=== PATIENT | male | born 1975 | race Caucasian/White ===

== ENCOUNTER 2016-10-14 19:10 | Inpatient (IN) | payer BC ==
[~2016-10-14] VITALS: Ht 175.3 cm; Wt 95.3 kg
[2016-10-14 20:35] LABS: HEMOGLOBIN 8.4 gm/dl (14.0-17.5); WHITE BLOOD COUNT 16.5 K/UL (4.5-11.0)
[2016-10-14 20:44] LABS: BUN/CREATININE RATIO 7 (0-10)
[2016-10-14 21:03] LABS: RED BLOOD COUNT 4.44 M/UL (4.20-5.50)
[2016-10-15 08:06] LABS: HEMOGLOBIN 7.8 gm/dl (14.0-17.5); WHITE BLOOD COUNT 12.5 K/UL (4.5-11.0)
[2016-10-15 08:07] LABS: RED BLOOD COUNT 3.97 M/UL (4.20-5.50)
[2016-10-15 08:17] LABS: BUN/CREATININE RATIO 9 (0-10)
[2016-10-15 19:31] LABS: HEMOGLOBIN 9.1 gm/dl (14.0-17.5); RED BLOOD COUNT 4.42 M/UL (4.20-5.50); WHITE BLOOD COUNT 12.6 K/UL (4.5-11.0)
[2016-10-16 06:00] LABS: HEMOGLOBIN 8.8 gm/dl (14.0-17.5); RED BLOOD COUNT 4.34 M/UL (4.20-5.50); WHITE BLOOD COUNT 13.8 K/UL (4.5-11.0)
[2016-10-16 06:09] LABS: BUN/CREATININE RATIO 8 (0-10)
[2016-10-17 04:40] LABS: HEMOGLOBIN 8.7 gm/dl (14.0-17.5); RED BLOOD COUNT 4.24 M/UL (4.20-5.50); WHITE BLOOD COUNT 14.5 K/UL (4.5-11.0)
[2016-10-17 05:03] LABS: BUN/CREATININE RATIO 4 (0-10)
[2016-10-18 05:18] LABS: HEMOGLOBIN 9.1 gm/dl (14.0-17.5); RED BLOOD COUNT 4.39 M/UL (4.20-5.50)
[2016-10-18 05:19] LABS: WHITE BLOOD COUNT 10.6 K/UL (4.5-11.0)
[2016-10-18 05:33] LABS: BUN/CREATININE RATIO 9 (0-10)
[2016-10-19 04:43] LABS: HEMOGLOBIN 9.3 gm/dl (14.0-17.5); RED BLOOD COUNT 4.46 M/UL (4.20-5.50)
[2016-10-19 04:44] LABS: WHITE BLOOD COUNT 13.5 K/UL (4.5-11.0)
[2016-10-19 04:56] LABS: BUN/CREATININE RATIO 16 (0-10)
[2016-10-20] MEDS ORDERED: PREDNISONE10 MG PO (12:49)
[2016-10-20] MEDS ORDERED: FLECAINIDE ACET50 MG PO (12:50)
[2016-10-20] MEDS ORDERED: LEVAQUIN500 MG PO (12:51)
[2016-10-20] MEDS ORDERED: ASPIRIN EC81 MG PO (12:51)
[2016-10-20] MEDS ORDERED: METOPROLOL TART25 MG PO (12:52)
[2016-10-20] MEDS ORDERED: FLAGYL500 MG PO (12:52)
[2016-10-20] MEDS ORDERED: TYLENOL 325MG325 MG PO (13:03)
== END 2016-10-20 13:50 | disposition home or self-care (01) | DRG 386 ==
LOC: ER1 19:10 → ZEROF 22:59 → M/S 22:59 → PROG CARE 10-17 01:05 → M/S 10-18 20:00 → ZEROF 10-20 13:58
PROVIDERS: Family Medicine; Internal Medicine; Internal Medicine Gastroenterology; ADMIT Internal Medicine
PROC: 30233N1 Transfusion of Nonautologous Red Blood Cells into Peripheral Vein, Percutaneous Approach (ICD-10-PCS; principal; 2016-10-15)
DX: K51.90 Ulcerative colitis, unspecified, without complications (principal); D62 Acute posthemorrhagic anemia; I48.0 Paroxysmal atrial fibrillation; D50.9 Iron deficiency anemia, unspecified; E87.6 Hypokalemia; D47.3 Essential (hemorrhagic) thrombocythemia; J02.9 Acute pharyngitis, unspecified; F17.210 Nicotine dependence, cigarettes, uncomplicated; Z79.82 Long term (current) use of aspirin; E66.9 Obesity, unspecified; Z68.31 Body mass index [BMI] 31.0-31.9, adult; Z82.49 Family history of ischemic heart disease and other diseases of the circulatory system; Z80.3 Family history of malignant neoplasm of breast
CPT/HCPCS: ECHO; 36415; 36430; 71010; 78452; 80048; 80053; 81001; 82150; 82272; 82550; 82553; 82728; 83540; 83550; 83605; 83690; 83735; 84132; 84443; 84484; 85025; 85027; 86850; 86900; 86901; 86920; 87040; 87045; 87046; 87081; 87086; 87880; 93005; 93017; 93306; 96361; 96374; 96375; 99285; A9502; C9113; J1650; J1956; J2270; J2405; J2550; J2785; J2920; J3480; J7040; J7050; P9016; Q9962

== ENCOUNTER → 2020-02-20 | Outpatient (CLI) | payer OTHER ==
[~2020-02-20] VITALS: Ht 175.3 cm; Wt 99.8 kg
[~2020-02-20] MED LIST: ASPIRIN EC81 MG PO; FLAGYL500 MG PO; FLECAINIDE ACET50 MG PO; IMURAN50 MG PO; LEVAQUIN500 MG PO; METOPROLOL TART25 MG PO; PERCOCET 5/325 T1 EA PO; PREDNISONE10 MG PO; SIMPONI100 MG/1 M IM; TYLENOL 325MG325 MG PO
[2020-02-20 10:07] LABS: HEMOGLOBIN 15.7 gm/dl (14.0-17.5); RED BLOOD COUNT 4.66 M/UL (4.20-5.50); WHITE BLOOD COUNT 5.5 K/UL (4.5-11.0)
[2020-02-20 10:28] LABS: BUN/CREATININE RATIO 17 (0-10)
== END ==
LOC: OPSV 08:00
PROVIDERS: Dietitian, Registered
DX: K51.00 Ulcerative (chronic) pancolitis without complications (principal)
CPT/HCPCS: 80053; 85025; 86140; 96365; 96366; 96375; 96413; 96415; J1720; J1745; J7030

== ENCOUNTER → 2020-03-19 | Outpatient (CLI) | payer OTHER ==
[~2020-03-19] VITALS: Ht 175.3 cm; Wt 99.8 kg
[2020-03-19 09:46] LABS: HEMOGLOBIN 16.4 gm/dl (14.0-17.5); RED BLOOD COUNT 4.76 M/UL (4.20-5.50); WHITE BLOOD COUNT 7.6 K/UL (4.5-11.0)
[2020-03-19 09:59] LABS: BUN/CREATININE RATIO 15 (0-10)
== END ==
LOC: OPSV 09:00
PROVIDERS: Internal Medicine Gastroenterology
DX: K51.00 Ulcerative (chronic) pancolitis without complications (principal)
CPT/HCPCS: 36415; 80053; 85025; 86140; 96365; 96366; 96375; J1720; J7030; Q5103

== ENCOUNTER → 2020-04-30 | Outpatient (CLI) | payer OTHER ==
[~2020-04-30] VITALS: Ht 175.3 cm; Wt 99.8 kg
[2020-04-30 09:57] LABS: RED BLOOD COUNT 4.58 M/UL (4.20-5.50); WHITE BLOOD COUNT 6.5 K/UL (4.5-11.0)
[2020-04-30 10:04] LABS: BUN/CREATININE RATIO 15 (0-10)
== END ==
LOC: OPSV 09:00
PROVIDERS: Internal Medicine Gastroenterology
DX: K51.00 Ulcerative (chronic) pancolitis without complications (principal)
CPT/HCPCS: 80053; 85025; 86140; 96365; 96366; 96375; J1720; J7030; Q5103

== ENCOUNTER → 2020-05-28 | Outpatient (CLI) | payer OTHER ==
[~2020-05-28] VITALS: Ht 175.3 cm; Wt 99.8 kg
[2020-05-28 10:04] LABS: HEMOGLOBIN 16.2 gm/dl (14.0-17.5); RED BLOOD COUNT 4.62 M/UL (4.20-5.50); WHITE BLOOD COUNT 9.2 K/UL (4.5-11.0)
[2020-05-28 10:36] LABS: BUN/CREATININE RATIO 22 (0-10)
== END ==
LOC: OPSV 09:00
PROVIDERS: Internal Medicine Gastroenterology
DX: K51.00 Ulcerative (chronic) pancolitis without complications (principal); K60.3 Anal fistula; K64.5 Perianal venous thrombosis; D50.9 Iron deficiency anemia, unspecified; G47.00 Insomnia, unspecified; R11.0 Nausea; Z87.891 Personal history of nicotine dependence
CPT/HCPCS: 36415; 80053; 85025; 86140; 96365; 96366; 96375; J1720; J7030; Q5103

== ENCOUNTER → 2020-06-25 | Outpatient (CLI) | payer OTHER ==
[~2020-06-25] VITALS: Ht 175.3 cm; Wt 99.8 kg
[2020-06-25 09:30] LABS: HEMOGLOBIN 15.3 gm/dl (14.0-17.5); RED BLOOD COUNT 4.37 M/UL (4.20-5.50); WHITE BLOOD COUNT 7.6 K/UL (4.5-11.0)
[2020-06-25 09:59] LABS: BUN/CREATININE RATIO 15 (0-10)
== END ==
LOC: OPSV 08:47
PROVIDERS: Internal Medicine Gastroenterology
DX: K51.00 Ulcerative (chronic) pancolitis without complications (principal); K60.3 Anal fistula; D64.9 Anemia, unspecified; K64.5 Perianal venous thrombosis; K64.4 Residual hemorrhoidal skin tags; D50.9 Iron deficiency anemia, unspecified; G47.00 Insomnia, unspecified; K51.90 Ulcerative colitis, unspecified, without complications; Z87.19 Personal history of other diseases of the digestive system; Z87.891 Personal history of nicotine dependence; Z88.8 Allergy status to other drugs, medicaments and biological substances
CPT/HCPCS: 36415; 80053; 85025; 86140; 96365; 96366; J1720; J7030; Q5103

== ENCOUNTER → 2020-07-23 | Outpatient (CLI) | payer OTHER ==
[~2020-07-23] VITALS: Ht 175.3 cm; Wt 99.8 kg
[2020-07-23 09:52] LABS: HEMOGLOBIN 16.3 gm/dl (14.0-17.5); RED BLOOD COUNT 4.59 M/UL (4.20-5.50); WHITE BLOOD COUNT 8.5 K/UL (4.5-11.0)
[2020-07-23 10:54] LABS: BUN/CREATININE RATIO 27 (0-10)
== END ==
LOC: OPSV 09:00
PROVIDERS: Internal Medicine Gastroenterology
DX: K51.00 Ulcerative (chronic) pancolitis without complications (principal); Z87.19 Personal history of other diseases of the digestive system; Z87.891 Personal history of nicotine dependence
CPT/HCPCS: 36415; 80053; 85025; 86140; 96365; 96366; J1720; J7030; Q5103

== ENCOUNTER → 2020-08-20 | Outpatient (CLI) | payer OTHER ==
[~2020-08-20] VITALS: Ht 175.3 cm; Wt 99.8 kg
[2020-08-20 09:42] LABS: RED BLOOD COUNT 4.59 M/UL (4.20-5.50); WHITE BLOOD COUNT 6.8 K/UL (4.5-11.0)
== END ==
LOC: OPSV 09:00
PROVIDERS: Internal Medicine Gastroenterology
DX: K51.00 Ulcerative (chronic) pancolitis without complications (principal); Z87.891 Personal history of nicotine dependence
CPT/HCPCS: 36415; 80053; 85025; 86140; 96365; 96366; J1720; J7030; Q5103

== ENCOUNTER → 2020-09-17 | Outpatient (CLI) | payer OTHER ==
[~2020-09-17] VITALS: Ht 175.3 cm; Wt 99.8 kg
[2020-09-17 09:37] LABS: HEMOGLOBIN 16.5 gm/dl (14.0-17.5); RED BLOOD COUNT 4.96 M/UL (4.20-5.50); WHITE BLOOD COUNT 6.8 K/UL (4.5-11.0)
[2020-09-17 09:58] LABS: BUN/CREATININE RATIO 13 (0-10)
== END ==
LOC: OPSV 09:00
PROVIDERS: Internal Medicine Gastroenterology
DX: K51.00 Ulcerative (chronic) pancolitis without complications (principal)
CPT/HCPCS: 36415; 80053; 85025; 86140; 96365; 96366; 96375; J1720; J7030; Q5103

== ENCOUNTER → 2020-10-16 | Outpatient (CLI) | payer OTHER ==
[~2020-10-16] VITALS: Ht 175.3 cm; Wt 99.8 kg
[2020-10-16 10:01] LABS: HEMOGLOBIN 15.3 gm/dl (14.0-17.5); RED BLOOD COUNT 4.67 M/UL (4.20-5.50); WHITE BLOOD COUNT 6.6 K/UL (4.5-11.0)
[2020-10-16 10:21] LABS: BUN/CREATININE RATIO 15 (0-10)
== END ==
LOC: OPSV 09:00
PROVIDERS: Internal Medicine Gastroenterology
DX: K51.00 Ulcerative (chronic) pancolitis without complications (principal)
CPT/HCPCS: 80053; 85025; 86140; 96365; 96366; 96375; J1720; J7030; Q5103

== ENCOUNTER → 2021-01-07 | Outpatient (CLI) | payer OTHER ==
[~2021-01-07] VITALS: Ht 175.3 cm; Wt 99.8 kg
[2021-01-07 09:53] LABS: HEMOGLOBIN 17.3 gm/dl (14.0-17.5); RED BLOOD COUNT 4.95 M/UL (4.20-5.50); WHITE BLOOD COUNT 6.5 K/UL (4.5-11.0)
[2021-01-07 10:13] LABS: BUN/CREATININE RATIO 17 (0-10)
== END ==
LOC: OPSV 09:00
PROVIDERS: Internal Medicine Gastroenterology
DX: K51.00 Ulcerative (chronic) pancolitis without complications (principal)
CPT/HCPCS: 80053; 85025; 86140; J1720; J7030; Q5103

== ENCOUNTER → 2021-02-04 | Outpatient (CLI) | payer OTHER ==
[~2021-02-04] VITALS: Ht 175.3 cm; Wt 99.8 kg
[2021-02-04 09:33] LABS: HEMOGLOBIN 17.7 gm/dl (14.0-17.5); RED BLOOD COUNT 5.14 M/UL (4.20-5.50); WHITE BLOOD COUNT 7.1 K/UL (4.5-11.0)
[2021-02-04 09:59] LABS: BUN/CREATININE RATIO 17 (0-10)
== END ==
LOC: OPSV 08:55
PROVIDERS: Internal Medicine Gastroenterology
DX: K51.00 Ulcerative (chronic) pancolitis without complications (principal)
CPT/HCPCS: 36415; 80053; 85025; 86140; 96365; 96366; 96375; J1720; J7030; Q5103

== ENCOUNTER → 2021-03-04 | Outpatient (CLI) | payer OTHER ==
[~2021-03-04] VITALS: Ht 175.3 cm; Wt 99.8 kg
[2021-03-04 09:34] LABS: HEMOGLOBIN 16.8 gm/dl (14.0-17.5); RED BLOOD COUNT 4.92 M/UL (4.20-5.50); WHITE BLOOD COUNT 7.4 K/UL (4.5-11.0)
[2021-03-04 09:57] LABS: BUN/CREATININE RATIO 16 (0-10)
== END ==
LOC: OPSV 08:47
PROVIDERS: Internal Medicine Gastroenterology
DX: K51.00 Ulcerative (chronic) pancolitis without complications (principal)
CPT/HCPCS: 80053; 85025; 86140; 96365; 96366; 96375; J1720; J7030; Q5103

== ENCOUNTER → 2021-05-20 | Outpatient (CLI) | payer OTHER ==
[~2021-05-20] VITALS: Ht 175.3 cm; Wt 99.8 kg
[2021-05-20 09:41] LABS: HEMOGLOBIN 17.6 gm/dl (14.0-17.5); RED BLOOD COUNT 5.21 M/UL (4.20-5.50)
[2021-05-20 10:05] LABS: BUN/CREATININE RATIO 19 (0-10)
== END ==
LOC: OPSV 09:00
PROVIDERS: Internal Medicine Gastroenterology
DX: K51.00 Ulcerative (chronic) pancolitis without complications (principal)
CPT/HCPCS: 80053; 85025; 86140; 96375; 96413; 96415; J1720; J7030; Q5103

== ENCOUNTER → 2021-06-17 | Outpatient (CLI) | payer OTHER ==
[~2021-06-17] VITALS: Ht 175.3 cm; Wt 99.8 kg
[2021-06-17 10:31] LABS: HEMOGLOBIN 17.6 gm/dl (14.0-17.5); RED BLOOD COUNT 5.15 M/UL (4.20-5.50); WHITE BLOOD COUNT 6.8 K/UL (4.5-11.0)
[2021-06-17 11:03] LABS: BUN/CREATININE RATIO 18 (0-10)
== END ==
LOC: OPSV 08:00
PROVIDERS: Internal Medicine Gastroenterology
DX: K51.00 Ulcerative (chronic) pancolitis without complications (principal)
CPT/HCPCS: 80053; 85025; 86140; 96366; 96375; 96413; 96415; J1720; J7030; Q5103

== ENCOUNTER → 2021-07-15 | Outpatient (CLI) | payer OTHER ==
[~2021-07-15] VITALS: Ht 175.3 cm; Wt 99.8 kg
[2021-07-15 08:17] LABS: HEMOGLOBIN 16.2 gm/dl (14.0-17.5); RED BLOOD COUNT 4.89 M/UL (4.20-5.50); WHITE BLOOD COUNT 6.7 K/UL (4.5-11.0)
[2021-07-15 08:45] LABS: BUN/CREATININE RATIO 23 (0-10)
== END ==
LOC: OPSV 07:48
PROVIDERS: Internal Medicine Gastroenterology
DX: K51.00 Ulcerative (chronic) pancolitis without complications (principal)
CPT/HCPCS: 80053; 85025; 86140; 96375; 96413; 96415; J1720; J7030; Q5103

== ENCOUNTER → 2021-08-19 | Outpatient (CLI) | payer OTHER ==
[~2021-08-19] VITALS: Ht 175.3 cm; Wt 99.8 kg
[2021-08-19 08:14] LABS: HEMOGLOBIN 16.4 gm/dl (14.0-17.5); RED BLOOD COUNT 4.81 M/UL (4.20-5.50); WHITE BLOOD COUNT 6.1 K/UL (4.5-11.0)
[2021-08-19 08:53] LABS: BUN/CREATININE RATIO 16 (0-10)
== END ==
LOC: OPSV 07:51
PROVIDERS: Internal Medicine Gastroenterology
DX: K51.00 Ulcerative (chronic) pancolitis without complications (principal)
CPT/HCPCS: 80053; 85025; 86140; 96375; 96413; 96415; J1720; J7030; Q5103

== ENCOUNTER → 2021-09-16 | Outpatient (CLI) | payer OTHER ==
[~2021-09-16] VITALS: Ht 175.3 cm; Wt 99.8 kg
[2021-09-16 08:58] LABS: HEMOGLOBIN 16.8 gm/dl (14.0-17.5); WHITE BLOOD COUNT 7.8 K/UL (4.5-11.0)
[2021-09-16 09:17] LABS: BUN/CREATININE RATIO 15 (0-10)
== END ==
LOC: OPSV 07:59
PROVIDERS: Internal Medicine Gastroenterology
DX: K51.00 Ulcerative (chronic) pancolitis without complications (principal)
CPT/HCPCS: 80053; 85025; 86140; 86317; 96375; 96413; 96415; J1720; J7030; Q5103

== ENCOUNTER → 2021-10-21 | Outpatient (CLI) | payer OTHER ==
[~2021-10-21] VITALS: Ht 175.3 cm; Wt 99.8 kg
[2021-10-21 08:44] LABS: HEMOGLOBIN 16.8 gm/dl (14.0-17.5); RED BLOOD COUNT 5.07 M/UL (4.20-5.50)
[2021-10-21 09:00] LABS: BUN/CREATININE RATIO 14 (0-10)
== END ==
LOC: OPSV 08:00
PROVIDERS: Internal Medicine Gastroenterology
DX: K51.00 Ulcerative (chronic) pancolitis without complications (principal)
CPT/HCPCS: 80053; 85025; 86140; 96375; 96413; 96415; J1720; J7030; Q5103